=== PATIENT | female | born 1965 | race Caucasian/White ===

== ENCOUNTER 2019-08-07 07:07 | Day surgery (SDC) | payer OTHER, BC, SELFPAY ==
[2019-08-06 09:16] VITALS: BMI 46.7
--- NOTE | 2019-08-07 07:22 | ANES.PREANES ---
Pre-Anesthetic Assessment Pre-Anesthetic Assessment: Height/Weight: Height 1.65 m Weight 127.459 kg Preop Diagnosis: Family hx colon polyps Proposed Procedure: Operation Date: 08/07/19 08:30 Proposed Procedures p Colonoscopy 96016/R19.5(Not Applicable) - Isaiah Peña MD Familial anesthetic complications: No trouble with anesthesia Was Beta Armand taken within 24 hours: N/A Last intake: Yesterday 1130 pm Social: Social History: No alcohol and No tobacco Exam: Pre-Anes Outpt Exam: alert, oriented x 3, clear to auscultation bilaterally and regular rate & rhythm Airway: Cervical ROM: WNL MP: 1 Dentition: Full Pulmonary: Pulmonary: Sleep apnea (CPAP) and URI Comments: Feeling as if she may have cold now - some coughing and phlegm, no fevers CV/HEM: CV/HEM: None reported : : None reported Hepatic: Hepatic: None reported GI: GI: GERD Comments: Hx gastric bypass, Metabolic: Metabolic: Morbid obesity Musc/skel: Musc/skel: None reported Neuropsych: Comments: 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 No follow up Anesthetic Plan: ASA status: II Anesthesia: MAC PFSH Anesthesia PFSH: Social History (Updated 08/06/19 @ 09:12 by Jessica White RN) Smoking and tobacco status: former smoker Data Anesthesia Cardiac Studies: No Data to Display
[2019-08-07 08:03] VITALS: BP 153/69; RESP 20; TEMP 36.9; O2SAT 99
[2019-08-07] MEDS: sodium chloride 0.9% 1,000 ML 30 ML (08:10)
[2019-08-07 09:26] VITALS: BP 98/68; PULSE 77; RESP 16; TEMP 36.8; O2SAT 98
[2019-08-07 09:37] VITALS: BP 106/58; PULSE 77; RESP 16; O2SAT 99
--- NOTE | 2019-08-07 14:48 | ANE.PACU ---
 Inpatient post-anesthesia follow up: Airway intact: Yes Vital signs: Temperature 98.2 F Pulse Rate [Monito r] 77 Respiratory Rate 16 Blood Pressure [Le ft Arm] 106/58 Pulse Oximetry 99 Oxygen Delivery Me thod Room Air Oxygen Flow Rate 2 Fraction of Inspir ed Oxygen Hydration adequate: Yes Nausea and vomiting: No Mental status: Baseline
--- NOTE | 2019-08-16 09:49 | PM.HPUD ---
H&P update H&P Update: DATE OF SURGERY/PROCEDURE: 08/07/19 DATE H&P PERFORMED: 07/02/19 H&P UPDATE INFORMATION: No changes to prior documentation and H&P to be scanned into chart PLANNED PROCEDURE: Operation Date: 08/07/19 08:30 Proposed Procedures p Colonoscopy 31528/R19.5(Not Applicable) - Isaiah Peña MD Conscious Sedation: PHYSICAL EXAM: alert and oriented x 3 OTHER PERTINENT EXAM FINDINGS: abomen: soft Full H&P Perinent History: Medical/Surgical History: Medical History (Updated 08/07/19 @ 09:28 by Isaiah Peña MD) History of colon polyps (Acute) Family History: Family History (Updated 08/07/19 @ 08:46 by Isaiah Peña MD) Other Family history of colon cancer Social History: Social History Smoking and tobacco status: former smoker
== END 2019-08-07 09:55 | disposition home or self-care (01) ==
PROVIDERS: Family Provider Registered Nurse; PCP Registered Nurse; Visit Provider Surgery
PROC: 0DJD8ZZ Inspection of Lower Intestinal Tract, Via Natural or Artificial Opening Endoscopic (ICD-10-PCS; CPT 45378; principal; 2019-08-07 08:30)
DX: R19.5 Other fecal abnormalities (principal); D12.2 Benign neoplasm of ascending colon; K57.30 Diverticulosis of large intestine without perforation or abscess without bleeding; Z87.891 Personal history of nicotine dependence; Z95.1 Presence of aortocoronary bypass graft; G47.30 Sleep apnea, unspecified; E66.01 Morbid (severe) obesity due to excess calories; Z68.42 Body mass index [BMI] 45.0-49.9, adult
CPT/HCPCS: 12345; 45380; 45385; 88305; 96365; J2704; J7030

== ENCOUNTER → 2020-05-08 14:08 | Outpatient (BNVA) | payer BC, SELFPAY | PROVIDERS: Family Provider Registered Nurse; PCP Registered Nurse; Visit Provider Registered Nurse | DX: E53.9 Vitamin B deficiency, unspecified (principal); N93.9 Abnormal uterine and vaginal bleeding, unspecified | CPT/HCPCS: 81000 ==

== ENCOUNTER 2020-05-13 11:22 | Outpatient (CLI) | payer BC, SELFPAY ==
--- NOTE | 2020-05-13 11:28 | MM_ITS ---
WS: [id number] BILATERAL DIGITAL SCREENING MAMMOGRAPHY WITH CAD CLINICAL INFORMATION: SCREENING HISTORY: Screening mammogram. No current complaints. COMPARISON: April 24, 2019 TECHNIQUE: Bilateral CC and MLO views. FINDINGS: Scattered fibroglandular densities bilaterally. No suspicious focal mass, asymmetry, calcifications, or architectural distortion. No evidence of malignancy. MM/[place] [id number] IMPRESSION: BI-RADS: 1-Negative FOLLOW UP: 1 Year Follow-up Recommend return to annual screening mammography.
== END 2020-05-13 11:23 | disposition home or self-care (01) ==
LOC: RADSHAW 11:25
PROVIDERS: PCP Registered Nurse; Visit Provider Registered Nurse
DX: Z12.31 Encounter for screening mammogram for malignant neoplasm of breast (principal)
CPT/HCPCS: 77067

== ENCOUNTER → 2020-06-30 11:06 | Outpatient (BNVA) | payer BC, SELFPAY | PROVIDERS: PCP Registered Nurse; Visit Provider Obstetrics & Gynecology | DX: Z12.4 Encounter for screening for malignant neoplasm of cervix (principal); N95.0 Postmenopausal bleeding; E66.01 Morbid (severe) obesity due to excess calories | CPT/HCPCS: 83001; 83036; 84146; 84443; 84702; 85025; 88175 ==

== ENCOUNTER → 2020-07-03 10:59 | Outpatient (BNVA) | payer BC, SELFPAY | PROVIDERS: PCP Registered Nurse; Visit Provider Obstetrics & Gynecology | DX: N95.0 Postmenopausal bleeding (principal) | CPT/HCPCS: 76830 ==

== ENCOUNTER → 2020-08-21 13:51 | Outpatient (BNVA) | payer OTHER, SELFPAY | PROVIDERS: PCP Registered Nurse; Visit Provider Obstetrics & Gynecology | DX: Z11.59 Encounter for screening for other viral diseases (principal) | CPT/HCPCS: 87635 ==

== ENCOUNTER 2020-08-27 10:29 | Day surgery (SDC) | payer OTHER, SELFPAY ==
[2020-08-25 12:35] VITALS: BMI 55.7
[2020-08-25 13:14] LABS: Basophils % 0.1 %; Eosinophils # 0.1 10^3/uL (0.0-0.8); Eosinophils % 1.3 %; Hematocrit 46.2 % (37.0-47.0); Hemoglobin 14.6 g/dL (11.5-15.3); Lymphocytes # 1.5 10^3/uL (0.8-4.8); Lymphocytes % 21.5 %; Mean Corpuscular HGB Conc 31.6 g/dL (30.0-36.0); Mean Corpuscular Hemoglobin 29.2 pg (28.0-34.0); Mean Corpuscular Volume 92.4 fL (81-99); Mean Platelet Volume 10.1 fL (7.4-10.4); Monocytes # 0.6 10^3/uL (0.2-0.9); Monocytes % 8.7 %; Neutrophils # 4.67 10^3/uL (1.8-7.7); Neutrophils % 68.1 %; Nucleated Red Blood Cells % 0 %; Platelet Count 265 10^3/cmm (130-400); Red Cell Distribution Width 14.5 % (12.1-15.1); White Blood Count 6.9 10^3/uL (4.0-10.0)
--- NOTE | 2020-08-25 13:14 | ANES.PREANE2 ---
Pre-Anesthetic Assessment Pre-Anesthetic Assessment: Height/Weight: Height 1.57 m Weight 138.346 kg Preop Diagnosis: Postmenopausal bleeding Proposed Procedure: Operation Date: 08/27/20 11:35 Proposed Procedures p Hysteroscopy 29924 85365 11458 N95.0(Not Applicable) - Indra Seaman MD s Dilation And Curettage (D&C) with myosure and paracervical block(Not Applicable) - Indra Seaman MD Familial anesthetic complications: None Social: Social History: No alcohol and No tobacco Exam: Pre-Anes Outpt Exam: alert, oriented x 3, clear to auscultation bilaterally and regular rate & rhythm Airway: MP: 1 Dentition: Other (missing teeth) Pulmonary: Pulmonary: Sleep apnea (cpap) GI: GI: GERD Comments: s/p gastric bypass Metabolic: Metabolic: Morbid obesity Neuropsych: Comments: 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 Still f.u once a year at [facility]. S/P partial hysterectomy 1986 Status post colonoscopy with polypectomy 08/07/2019:Ascending colon: 5 mm sessile polyp removed with cold biopsy forceps Sigmoid colon: Mild diverticulosis, 1.5 cm pedunculated polyp removed with a hot snare Family History Mother Diabetes Stroke Father Family history of colon cancer Denies family history of Ovarian cancer Clotting disorder Hyperlipidemia Breast cancer Anesthesia complication Bleeding disorder Hypertension Uterine cancer Thyroid condition Social History (Updated 08/25/20 @ 11:13 by Ashley Rangel RN) Smoking and tobacco status: former smoker Quit status (tobacco): has quit using tobacco Year quit tobacco: 2011 Alcohol intake: never Substance/Drug Use: never Data Anesthesia CBC & Chem 7: 08/25/20 13:05 08/25/20 13:05 Cardiac Studies: No Data to Display
[2020-08-25 13:40] LABS: Alanine Aminotransferase 27 U/L (0-33); Albumin Level 4.5 g/dL (3.5-5.2); Alkaline Phosphatase 129 IU/L (35-105); Anion Gap 10.1 (5-19); Aspartate Amino Transferase 22 U/L (0-32); Blood Urea Nitrogen 12 mg/dL (6-20); Calcium 9.3 mg/dL (8.5-10.5); Carbon Dioxide 31 mmol/L (22-29); Chloride 102 mmol/L (98-107); Globulin 3.1 g/dL (1.3-4.6); Glomerular Filtration Rate 127.6 mL/min (90-130); Glucose 114 mg/dL (65-115); Osmolality Calculated 289 mOsm/kg (285-295); Potassium 4.1 mmol/L (3.5-5.1); Sodium 139 mmol/L (136-145); Total Bilirubin 0.3 mg/dL (0.15-1.2); Total Protein 7.6 g/dL (6.6-8.7); Urine Appearance Clear (CLEAR); Urine Color Yellow (Yellow)
[2020-08-25 13:41] LABS: Add Urine Microscopic? YES; Bilirubin Urine Neg (Negative); Blood Urine 2+ (Negative); Glucose Urine UA Norm (Normal); Ketones Urine Negative (Negative); Leukocyte Esterase Urine Negative (Negative); Nitrate Urine Negative (Negative); Protein Urine Neg (Negative); Urobilinogen Urine Norm (Negative); pH Urine 5 (5-7)
[2020-08-25 13:43] LABS: Add Urine Culture? No; Bacteria Urine TRACE /hpf; Mucus Urine 3+ /hpf; RBC Urine 0-4 /hpf (0-2)
[2020-08-27 11:13] VITALS: BP 126/100; RESP 18; TEMP 37.2
[2020-08-27] MEDS: sodium chloride 0.9% 500 ML IV (11:28)
[2020-08-27] MEDS: scopolamine 1.5 Patch 1 PATCH TRANSDERMA (11:28)
--- NOTE | 2020-08-27 11:37 | ANES.PAUD2 ---
Pre-Anesthetic Update Pre-Anesthetic Assessment: Date of Surgery/Procedure: 08/27/20 Preop Diagnosis: Postmenopausal bleeding Proposed Procedure: Operation Date: 08/27/20 11:55 Proposed Procedures p Hysteroscopy 74709 [id number] 23008 N95.0(Not Applicable) - Indra Seaman MD s Dilation And Curettage (D&C) with myosure and paracervical block(Not Applicable) - Indra Seaman MD Any changes to Pre-Anesthetic Assessment?: No Last Intake: Intake Last Liquid Date 08/26/20 Last Liquid Time 21:00 Last Solid Date 08/26/20 Last Solid Time 17:30 Labs Last 48hrs: Laboratory Results - last 48 hr 08/25/20 08/25/20 08/25/20 13:05 13:05 13:05 WBC 6.9 RBC 5.00 Hgb 14.6 Hct 46.2 MCV 92.4 MCH 29.2 MCHC 31.6 RDW 14.5 Plt Count 265 MPV 10.1 Neut % (Auto) 68.1 Lymph % (Auto) 21.5 [place] % (Auto) 8.7 Eos % (Auto) 1.3 Baso % (Auto) 0.1 Neut # (Auto) 4.67 Lymph # (Auto) 1.5 [place] # (Auto) 0.6 Eos # (Auto) 0.1 Baso # (Auto) 0.0 Nucleated RBC % (a uto) 0 Nucleated RBCs # 0.0 Sodium 139 Potassium 4.1 Chloride 102 Carbon Dioxide 31 H Anion Gap 10.1 BUN 12 Creatinine 0.5 GFR Calculation 127.6 Glucose 114 Calculated Osmolal ity 289 Calcium 9.3 Total Bilirubin 0.3 AST 22 ALT 27 Alkaline Phosphata se 129 H Total Protein 7.6 Albumin 4.5 Globulin 3.1 Urine Color Yellow Urine Appearance Clear Urine pH 5 Ur Specific Gravit y 1.010 Urine Protein Neg Urine Glucose (UA) Norm Urine Ketones Negative Urine Blood 2+ H Urine Nitrate Negative Urine Bilirubin Neg Urine Urobilinogen Norm Ur Leukocyte Ann ase Negative Urine RBC 0-4 H Urine WBC None Ur Squamous Epith Cells 5-10 H Amorphous Sediment Not Reportable Urine Bacteria Trace Urine Mucus 3+ Blood Type Rho(D) Type Antibody Screen 08/25/20 13:05 WBC RBC Hgb Hct MCV MCH MCHC RDW Plt Count MPV Neut % (Auto) Lymph % (Auto) [place] % (Auto) Eos % (Auto) Baso % (Auto) Neut # (Auto) Lymph # (Auto) [place] # (Auto) Eos # (Auto) Baso # (Auto) Nucleated RBC % (a uto) Nucleated RBCs # Sodium Potassium Chloride Carbon Dioxide Anion Gap BUN Creatinine GFR Calculation Glucose Calculated Osmolal ity Calcium Total Bilirubin AST ALT Alkaline Phosphata se Total Protein Albumin Globulin Urine Color Urine Appearance Urine pH Ur Specific Gravit y Urine Protein Urine Glucose (UA) Urine Ketones Urine Blood Urine Nitrate Urine Bilirubin Urine Urobilinogen Ur Leukocyte Ann ase Urine RBC Urine WBC Ur Squamous Epith Cells Amorphous Sediment Urine Bacteria Urine Mucus Blood Type O Positive Rho(D) Type Positive Antibody Screen Negative Vitals: Temperature 99.0 F 08/27/20 11:13 Pulse Rhythm 08/27/20 11:07 Pulse Strength 3+ Normal 08/27/20 11:07 Respiratory Rate 18 08/27/20 11:13 Blood Pressure 126/100 08/27/20 11:13 Blood Pressure Ina n 108 08/27/20 11:13 Oxygen Delivery Me thod 08/27/20 11:07 Exam: Pre-Anes Outpt Exam: alert, oriented x 3, clear to auscultation bilaterally and regular rate & rhythm Cardiac Studies: No Data to Display
--- NOTE | 2020-08-27 14:42 | W.PM.OPSUD ---
Surgery/Procedure H&P Update DATE OF PROCEDURE: August 27, 2020 DATE H&P PERFORMED: 08/07/20 H&P UPDATE INFORMATION: I have reviewed H&P completed within last 30 days, I have examined patient prior to procedure and No changes to prior documentation PREOP DIAGNOSIS: Postmenopausal bleeding PLANNED PROCEDURE: Operation Date: 08/27/20 11:55 Proposed Procedures p Hysteroscopy 36217 17700 21961 N95.0(Not Applicable) - Indra Seaman MD s Dilation And Curettage (D&C) with myosure and paracervical block(Not Applicable) - Indra Seaman MD
--- NOTE | 2020-08-27 15:29 | PM.OP ---
Operative Report Date of procedure: August 27, 2020 Pre-op Diagnosis: Postmenopausal bleeding Post-op diagnosis: same Post-op Findings: Endometrial polyp Procedure Done: Hysteroscopic polypectomy via MyoSure Specimens removed/disposition: Endometrial polyp and endometrial curettings Surgeon: Indra Seaman MD Anesthesia: MAC Estimated blood loss (mL): 10 IV fluids (mL): 1,000 Urine output (mL): 50 Complications: None Condition: stable Disposition: PACU Brief History: 54-year-old female with postmenopausal bleeding Procedure: After informed consent, the risks included but were not limited to bleeding, infection, injury to internal organs. The patient was counseled on a possible laparotomy and on the potential need for hysterectomy. The patient expressed understanding of the risks involved, all questions were answered, and the patient consented to the procedure. The patient was taken to the operating room where general anesthesia was administered. She was placed in the dorsal lithotomy position and prepped and draped in sterile fashion. A time out procedure was performed. The patient was examined under anesthesia and found to have a normal uterus with normal adnexa. A sterile weight speculum was placed in the vagina. The uterus was then gently sounded to 6 cm, and the cervix was dilated. The 0 degrees MyoSure hysteroscope was advanced gently to the uterine fundus while visualizing the monitor. Survey of the uterine cavity showed: Polyp from anterior wall, the fundus shows atrophic endometrium; left ostium was visualized, and lateral wall with atrophic endometrium; right ostium visualized, and lateral wall with atrophic endometrium; anterior and posterior bravo are with atrophic endometrium; endocervical canal is normal. The MyoSure device was advanced and the direct visualization the polyps was morcellated without complication. At the end of morcellation the fluid deficit was 900 mL and was estimated at approximately 500 mL were on the floor. There was minimal bleeding noted and the tenaculum removed with goad hemostasis noted. The patient tolerated the procedure well. The patient was taken to the recovery area in stable condition.
[2020-08-27 15:36] VITALS: BP 132/112; PULSE 90; RESP 18; TEMP 36.2; O2SAT 96
[2020-08-27 16:10] VITALS: BP 109/71; PULSE 86; RESP 18; O2SAT 98
[2020-09-04 09:20] LABS: Miscellaneous Test See Scanned Lab Rpt
== END 2020-08-27 16:20 | disposition home or self-care (01) ==
PROVIDERS: PCP Registered Nurse; Visit Provider Obstetrics & Gynecology
PROC: 0UDB8ZZ Extraction of Endometrium, Via Natural or Artificial Opening Endoscopic (ICD-10-PCS; CPT 58558; principal; 2020-08-27 11:55)
DX: N95.0 Postmenopausal bleeding (principal); K21.9 Gastro-esophageal reflux disease without esophagitis; E66.01 Morbid (severe) obesity due to excess calories; Z68.43 Body mass index [BMI] 50.0-59.9, adult; Z95.1 Presence of aortocoronary bypass graft; Z86.010 Personal history of colon polyps; G47.33 Obstructive sleep apnea (adult) (pediatric); Z87.891 Personal history of nicotine dependence
CPT/HCPCS: 58558; 12345; 36415; 51702; 80053; 81001; 81301; 85025; 86850; 86900; 88305; 96365; J0690; J2250; J2704; J3010; J7040

== ENCOUNTER → 2020-10-17 13:07 | Outpatient (BNVA) | payer OTHER, SELFPAY | PROVIDERS: PCP Registered Nurse; Visit Provider Obstetrics & Gynecology | DX: N85.02 Endometrial intraepithelial neoplasia [EIN] (principal); N95.0 Postmenopausal bleeding | CPT/HCPCS: 87635 ==

== ENCOUNTER 2020-10-22 10:14 | Observation (INO) | payer OTHER, SELFPAY ==
[2020-10-17 11:08] VITALS: BMI 55.7
--- NOTE | 2020-10-17 11:55 | P.ANESASSM_ITS ---
Pre-Anesthetic Assessment Pre-Anesthetic Assessment: Height/Weight: Height 1.57 m Weight 138.346 kg Preop Diagnosis: Postmenopausal bleeding Proposed Procedure: Operation Date: 10/22/20 09:35 Proposed Procedures p Total Vaginal Hysterectomy 42415 N95.0 N85.02(Not Applicable) - Indra Seaman MD s Salpingo-Oophorectomy (Vaginal)(Bilateral) - Indra Seaman MD Familial anesthetic complications: None Social: Social History: No alcohol and No tobacco Exam: Pre-Anes Outpt Exam: alert, oriented x 3, clear to auscultation bilaterally and regular rate & rhythm Airway: Cervical ROM: WNL MP: 3 Dentition: Other (missing) Pulmonary: Pulmonary: Sleep apnea (cpap) GI: GI: GERD Comments: gastric bypass surgery in 2014 Metabolic: Metabolic: Morbid obesity Neuropsych: Comments: dhara walkerysm in her 20s which burst Anesthetic Plan: ASA status: 3 Anesthesia: General Risk of > 500 ml blood loss (7ml/kg in children): No PFSH Anesthesia PFSH: Medical History Aftercare following surgery of the genitourinary system GERD (gastroesophageal reflux disease) History of colon polyps Follow-up colonoscopy 2024 Obstructive sleep apnea Otalgia, bilateral Vitamin B deficiency Surgical History (Updated 10/17/20 @ 09:31 by Ashley Rangel, LEANNA) H/O esophagogastroduodenoscopy H/O eye surgery AT AGE 2 For lazy ey History of appendectomy History of delivery Hx of gastric bypass 2013. Still f.u once a year at [facility]. S/P partial hysterectomy 1986 Status post colonoscopy with polypectomy 08/07/2019:Ascending colon: 5 mm sessile polyp removed with cold biopsy forceps Sigmoid colon: Mild diverticulosis, 1.5 cm pedunculated polyp removed with a hot snare Family History Mother Diabetes Stroke Father Family history of colon cancer Denies family history of Ovarian cancer Clotting disorder Hyperlipidemia Breast cancer Anesthesia complication Bleeding disorder Hypertension Uterine cancer Thyroid condition Social History (Updated 10/17/20 @ 09:31 by Ashley Rangel RN) Smoking and tobacco status: former smoker Quit status (tobacco): has quit using tobacco Year quit tobacco: 2012 Alcohol intake: never Substance/Drug Use: never Female Reproductive History: Date of last menstrual period: 07/25/13 Data Anesthesia Cardiac Studies: No Data to Display
[2020-10-22] VITALS (18 sets, daily range): BP systolic 85–162; BP diastolic 53–79; PULSE 71–97; RESP 12–19; TEMP 36.4–37.3; O2SAT 91–96
[2020-10-22 06:20] LABS: Add Urine Microscopic? NO
[2020-10-22 06:33] LABS: Basophils % 0.4 %; Eosinophils # 0.1 10^3/uL (0.0-0.8); Eosinophils % 0.7 %; Hematocrit 50.4 % (37.0-47.0); Hemoglobin 16.1 g/dL (11.5-15.3); Lymphocytes # 1.6 10^3/uL (0.8-4.8); Lymphocytes % 23.7 %; Mean Corpuscular HGB Conc 31.9 g/dL (30.0-36.0); Mean Corpuscular Hemoglobin 29.5 pg (28.0-34.0); Mean Corpuscular Volume 92.5 fL (81-99); Mean Platelet Volume 9.6 fL (7.4-10.4); Monocytes # 0.7 10^3/uL (0.2-0.9); Monocytes % 10.6 %; Neutrophils # 4.29 10^3/uL (1.8-7.7); Neutrophils % 64.3 %; Nucleated Red Blood Cells % 0 %; Platelet Count 291 10^3/cmm (130-400); Red Blood Count 5.45 10^6/uL (4.1-5.3); White Blood Count 6.7 10^3/uL (4.0-10.0)
[2020-10-22] MEDS: sodium chloride 0.9% 500 ML IV ×2 (06:40→22:26)
[2020-10-22 06:48] LABS: Glucose Urine UA 4+ (Normal); Protein Urine Neg (Negative); Specific Gravity, Urine 1.005 (1.005-1.030); Urine Appearance Clear (CLEAR); Urine Color Yellow (Yellow); pH Urine 7 (5-7)
[2020-10-22 06:49] LABS: Bilirubin Urine Neg (Negative); Blood Urine Neg (Negative); Ketones Urine Negative (Negative); Leukocyte Esterase Urine Negative (Negative); Nitrate Urine Negative (Negative); Urobilinogen Urine Norm (Negative)
[2020-10-22] MEDS: enoxaparin 40 mg/0.4 mL Syringe SUBCUT (06:49)
[2020-10-22] MEDS: scopolamine 1.5 Patch 1 PATCH TRANSDERMA (06:49)
--- NOTE | 2020-10-22 06:56 | W.PM.OPSUD ---
Surgery/Procedure H&P Update DATE OF PROCEDURE: October 22, 2020 DATE H&P PERFORMED: 10/17/20 H&P UPDATE INFORMATION: I have reviewed H&P completed within last 30 days, I have examined patient prior to procedure and No changes to prior documentation PREOP DIAGNOSIS: Menopausal bleeding, complex atypical hyperplasia; endometrial hyperplasia PLANNED PROCEDURE: Operation Date: 10/22/20 07:00 Proposed Procedures p Total Vaginal Hysterectomy 50463 N95.0 N85.02(Not Applicable) - Indra Seaman MD s Salpingo-Oophorectomy (Vaginal)(Bilateral) - Indra Seaman MD
[2020-10-22] MEDS: ceFAZolin 3,000 MG in sodium chloride 0.9% (100 ml) 100 ML 200 MG IV (07:00)
[2020-10-22 07:18] LABS: Alanine Aminotransferase 32 U/L (0-33); Albumin Level 4.2 g/dL (3.5-5.2); Alkaline Phosphatase 91 IU/L (35-105); Anion Gap 11.7 (5-19); Aspartate Amino Transferase 24 U/L (0-32); Blood Urea Nitrogen 8 mg/dL (6-20); Calcium 9.1 mg/dL (8.5-10.5); Carbon Dioxide 31 mmol/L (22-29); Chloride 103 mmol/L (98-107); Globulin 2.8 g/dL (1.3-4.6); Glomerular Filtration Rate 127.2 mL/min (90-130); Glucose 126 mg/dL (65-115); Osmolality Calculated 292 mOsm/kg (285-295); Potassium 4.7 mmol/L (3.5-5.1); Sodium 141 mmol/L (136-145); Total Bilirubin 0.4 mg/dL (0.15-1.2)
--- NOTE | 2020-10-22 07:59 | SUR.OPER ---
pt's sister notified of surgical start
--- NOTE | 2020-10-22 10:19 | PM.OP ---
Operative Report Date of procedure: October 22, 2020 Pre-op Diagnosis: Menopausal bleeding, complex atypical hyperplasia; endometrial hyperplasia Post-op diagnosis: same Post-op Diagnosis: endometrial cancer Procedure Done: Laparoscopic-assisted vaginal hysterectomy. Lysis of adhesions. . Cystoscopy Specimens removed/disposition: Uterus Pathology: Uterus Surgeon: Indra Seaman MD Anesthesia: General Estimated blood loss (mL): 400 IV fluids (mL): 1,400 Urine output (mL): 400 Complications: none Condition: stable Disposition: PACU Brief History: 55-year-old female with postmenopausal bleeding, endometrial biopsy with complex hyperplasia with atypia Procedure: After informed consent, the patient was taken to the operating room where general anesthesia was administered. Pre-Procedure Time-Out verifying the correct patient identity, correct procedure verified with consent, correct site and side, correct patient position, availability of correct implants and any special equipment or requirements was performed and acknowledge by the OR team. She was placed in the dorsal lithotomy position and prepped and draped in sterile fashion. The patient was examined under anesthesia and found to have a normal uterus with normal adnexa. A Verdin catheter was placed in the bladder. A weighted speculum was placed in the vagina, and the anterior lip of cervix was grasped with the single toothed tenaculum. A uterine manipulator was advanced into the endocervical. Tenaculum was removed after uterine manipulator was secured. The speculum was removed from the vagina. The attention was brought to abdomen after changing gloves. The base of the umbilicus was grasped with an Allis clamp and with 2 towel clamp bilaterally tenting up the umbilicus an intraumbilical incision was made with a scalpel. While tenting up on the abdomen, a Verres needle with sleeve was admitted into the intra-abdominal cavity. A saline drop test was performed and noted to be within normal limits. Pneumoperitoneum was attained with 4 liters of carbon dioxide. The Verres needle was removed. Then a 5 mm Optiview trocar and cannula were inserted under direct visualization without complications. Trocars were removed and the laparoscope was inserted and connected to the video camera light source. A 5 mm trocar and cannula were placed in the right lower quadrant under direct visualization after infiltration of 0.5% Marcaine with epinephrine. A 5 mm trocar and cannula were placed in the left lower quadrant under direct visualization after infiltration of 0.5% Marcaine with epinephrine. The pelvic contents were visualized and noted a small uterus, deep cul-de-sac, normal bilateral fallopian tubes and ovaries, normal appendix, and both ureters were identified crossing the pelvic brim and pelvic sidewall. The left round ligament was coagulated and transected using LigaSure device. The left broad ligament was opened down to the level of the uterine artery and vein. The left infundibulopelvic ligament was coagulated using LigaSure and then transected. The right round ligament was coagulated and transected using LigaSure, and the right broad ligament was opened down to the level of the right uterine artery and vein. The right infundibulopelvic ligament was coagulated and transected using LigaSure. Peritoneum of the lower uterine segment was entered using LIGASURE, and the bladder was dissected off the lower uterine segment using blunt dissection. Careful inspection revealed complete hemostasis. A weighted speculum was placed in the posterior vaginal wall and the right-angle retractor used to visualize the cervix. The cervix was grasped across the anterior lip with a single-toothed tenaculum and circumferentially infiltrated with 1% Xylocaine with epinephrine at this time. The cervix was circumferentially excised with the scalpel. The vaginal mucosa was dissected superiorly with sharp dissection. The anterior peritoneal reflection was identified, and it was entered with Metzenbaum scissors. A posterior colpotomy was made through the cul-de-sac space. The posterior peritoneum was identified in similar fashion and Metzenbaum scissors were used to enter the cul-de-sac. At this time, a weighted speculum was placed, advanced posteriorly into the cul-de-sac. At this time, the left and right uterosacral ligaments were isolated and ligated with 0 Vicryl. The LigaSure device was then used in a serial fashion up through the cardinal ligaments bilaterally. Finally, the uterine arteries were cross-clamped, cut, and ligated with the LigaSure device. LigaSure device was then used up through the broad ligaments superiorly and finally the uterus was rotated posteriorly. The left and right tubes were then cross-clamped and ligated with LigaSure device. The uterus was excised and submitted for pathologic evaluation. At this time, [place] clamps were used to grasp the left and right ovaries, and they were removed per the patient's request. Curved Zeppelin clamps were placed across the infundibulopelvic ligaments bilaterally and curved scissors were used to excise the specimen from the Zeppelin clamp. The pedicles were doubly ligated bilaterally with 0 Vicryl and hemostasis noted to be achieved. No other abnormalities were noted in the pelvic cavity. At this time, instruments were removed from the patient's abdominopelvic cavity. Vaginal cuff closure and peritoneum were incorporated into one layer with 0 Vicryl suture in a continuous running interlocking fashion. Hemostasis was noted to be achieved. Verdin catheter was then placed yielding clear leila urine. A vaginal packing with Premarin cream was placed to provide support during the healing process. The patient tolerated the procedure well and was taken to the recovery room in a stable condition. Sponge and needle counts were correct x3.
--- NOTE | 2020-10-22 10:32 | P.PCN_ITS ---
PACU note PACU note: VSS, Good respiratory effort, report to RECRUITMENT OFFICER Post-Anesthesia Exam: awake
--- NOTE | 2020-10-22 10:32 | PM.PACU ---
PACU note PACU note: VSS, Good respiratory effort, report to ELECTROMECHANIC Post-Anesthesia Exam: awake
--- NOTE | 2020-10-22 10:47 | SUR.PHASEI ---
PT AWAKE ALERT TAKING OCC ICE CHIPS PT VERBALLY DENIES NAUSEA AND PAIN, PT GIVEN 2 WARM BLANKETS FOR COMFORT AND SHIVERING. ABD LARGE WITH 3 SITES WITH EXOFIN, DARLENE PAD AND KATZ CATHETER TO DD WITH LARGE AMT OF BLUE URINE TO TUBING AND BAG.
--- NOTE | 2020-10-22 11:23 | SUR.PHASEI ---
PT TO OB AWAKE ALERT TALKNG AND LAUGHING WITH STAFF, PT MOVED TOBED WITH THE RUSLAN IRIZARRY WITH 3 SITES D/I KATZ PATENT OF BLUE URINE
[2020-10-22] MEDS: ketorolac 30 mg/mL INJ IVP ×2 (12:27→18:39)
[2020-10-22] MEDS: dextrose 5%-lactated ringers 1,000 ML 125 ML IV ×2 (14:26→21:45)
[2020-10-22] MEDS: HYDROcodone-acetaminophen 5-325 mg Tablet PO (16:24)
--- NOTE | 2020-10-22 18:04 | ANE.PACU2 ---
Inpatient post-anesthesia follow up: Airway intact: Yes Vital signs: Temperature 97.9 F Pulse Rate 94 Respiratory Rate 18 Blood Pressure 105/64 Pulse Oximetry 94 Oxygen Delivery Me thod Room Air Oxygen Flow Rate Fraction of Inspir ed Oxygen Hydration adequate: Yes Nausea and vomiting: No Pain level: 3 Mental status: Baseline
--- NOTE | 2020-10-22 18:10 | PC.NURSE ---
Engine Hostler attempted to walk patient. Patient stood, reported that she was feeling fine. Patient took a couple of steps around the bed and then stated that she was feeling dizzy. Patient assisted back to bed. Patient felt better after laying down. Patient reports she will press her call light when she desired to attempt to ambulate again.
[2020-10-22] MEDS: docusate sodium 100 mg Capsule PO (18:39)
[2020-10-22] MEDS: diphenhydrAMINE 25 mg Capsule PO (18:39)
[2020-10-23 04:00] VITALS: BP 110/62; PULSE 80; RESP 17; TEMP 36.7; O2SAT 95
[2020-10-23 05:17] LABS: Hemoglobin 11.7 g/dL (11.5-15.3); Mean Corpuscular HGB Conc 31.6 g/dL (30.0-36.0); Mean Corpuscular Hemoglobin 29.4 pg (28.0-34.0); Mean Platelet Volume 9.3 fL (7.4-10.4); Platelet Count 242 10^3/cmm (130-400); Red Blood Count 3.98 10^6/uL (4.1-5.3); Red Cell Distribution Width 14.9 % (12.1-15.1); White Blood Count 8.9 10^3/uL (4.0-10.0)
[2020-10-23] MEDS: HYDROcodone-acetaminophen 5-325 mg Tablet PO ×2 (05:19→11:54)
[2020-10-23] MEDS: ketorolac 30 mg/mL INJ IVP (05:19)
[2020-10-23] MEDS: docusate sodium 100 mg Capsule PO (09:44)
[2020-10-23] MEDS: diphenhydrAMINE 25 mg Capsule PO (09:44)
[2020-10-23] MEDS: multivitamin therapeutic Tablet 1 TAB PO (09:44)
[2020-10-23] MEDS: pantoprazole DR 40 mg Tablet PO (09:44)
[2020-10-23 09:51] VITALS: BP 96/64; PULSE 78; RESP 16; TEMP 36.6; O2SAT 97
--- NOTE | 2020-10-23 12:36 | P.DS_ITS ---
Discharge Providers MANAGER MANAGING Date of Admission: 10/22/20 10:14 Date of Discharge: 10/23/20 Attending Provider at Admission: Indra Seaman MD Attending Provider at Discharge: Indra Seaman MD Primary Care Provider: VALENTE Sotelo Reason for Visit Reason for Visit: postmenopausal bleeding Hospital Course Hospital Course Mrs. Dover 55-year-old female with postmenopausal bleeding admitted for planned laparoscopic-assisted vaginal hysterectomy. The procedure was performed without complication. She is afebrile and hemodynamically stable. Tolerating diet well. Ambulating without difficulty. Passing flatus. Overnight postop observation has been uneventful. Patient was counseled regarding preliminary frozen section of the uterus showing stage I endometrial adenocarcinoma. Physical Exam Narrative: EXAM NARRATIVE: GA: Alert and oriented ?3. HEENT: WNL. Heart: Regular rate and rhythm. Lungs: Clear to auscultation bilaterally. Abdomen: Bowel sounds present, nontender, minimal tenderness, incision clean and dry, no redness, pain or edema. SECURITY GUARDS DISPATCHER: No bleeding. Extremities: No edema, no cyanosis, no calves pain. Urinary Catheter Management^: Verdin: Cath Placed During This Visit: yes, but has since been removed by the nurse Reason for Continuing Indwelling Catheter: Decision to DC Catheter Urinary Catheter Date of Insertion: 10/22/20 Urinary Catheter Time of Insertion: 07:41 Date Urinary Catheter Removed: 10/23/20 Time Urinary Catheter Discontinued: 07:45 Discharge Data Data Completed and Pending: Pending at discharge Category Date Time Status ES surgery / GI i mages Routine Exams 10/22/20 06:40 Taken Pathology: Surgic al [PTH] Routine Pth 10/22/20 10:16 Received Labs from last 24 hours 10/23/20 05:10 WBC 8.9 RBC 3.98 L Hgb 11.7 Hct 37.0 MCV 93.0 MCH 29.4 MCHC 31.6 RDW 14.9 Plt Count 242 MPV 9.3 Vitals: Last Vital Signs Temp 97.9 F 10/23/20 09:51 Pulse 78 10/23/20 09:51 Resp 16 10/23/20 09:51 BP 96/64 10/23/20 09:51 Pulse Ox 97 10/23/20 09:51 Discharge Plan Discharge Patient Disposition: Home Condition: Stable Prescriptions: New hydrocodone-acetaminophen 5-325 mg tablet 1 tab PO Q4H PRN (Reason: pain) Qty: 20 RF: 0 acetaminophen 325 mg capsule 325 mg PO Q4H PRN (Reason: fever or pain) Qty: 60 RF: 0 ferrous sulfate [Iron (ferrous sulfate)] 325 mg (65 mg iron) tablet 325 mg PO BID Qty: 30 RF: 0 ibuprofen 800 mg tablet 800 mg PO TID PRN (Reason: pain) Qty: 60 RF: 0 Continued cyanocobalamin (vitamin B-12) 1,000 mcg/mL solution 1,000 mcg IM .monthly Qty: 1 RF: 5 zinc acetate 25 mg (zinc) capsule 25 mg PO DAILY RF: 0 oxycodone-acetaminophen 5-325 mg tablet 1 tab PO Q8H PRN (Reason: Pain) RF: 0 multivitamin Tablet 1 tab PO DAILY RF: 0 ascorbic acid (vitamin C) [Vitamin C] 1,000 mg Tablet 1,000 mg PO DAILY RF: 0 Calcium 600 + D(3) 600-125 mg-unit Tablet 2 tab PO DAILY RF: 0 docusate sodium [Colace] 100 mg Capsule 200 mg PO DAILY RF: 0 diphenhydramine HCl 25 mg tablet 25 mg PO BID RF: 0 garlic 100 mg tablet 200 mg PO DAILY RF: 0 glucosamine sulfate [Glucosamine] 500 mg tablet 1,000 mg PO DAILY RF: 0 Prilosec OTC 20 mg tablet,delayed release (DR/EC) 40 mg PO DAILY RF: 0 Tylenol 325 mg capsule 325 mg PO Q4H PRN (Reason: fever or pain) RF: 0 Memory Formula Tablet 1 tab PO DAILY RF: 0 Bariatric Multivitamins 45 mg iron- 800 mcg-120 mcg Capsule 1 cap PO DAILY RF: 0 Discharge Orders: Discharge Order (Routine); Ordered 10/23/20 Ordered By: Indra Seaman Referrals: Indra Seaman MD [Physician] - 2 weeks Discharge Diet: Usual diet Discharge Activity: Increase activity as tolerated Patient Instructions: Laparoscopically Assisted Vaginal Hysterectomy (DC) Activity Restrictions/Additional Instructions: 1. Please call [facility] on next working day to make your post-operative appointment in 2 weeks. 2. Please stay home until you come back to the clinic on first post-operative check up. 3. Please follow instructions on your medications CAREFULLY. 4. If you have abdominal incision, do not cover it unless dressing is necessary because of drainage. OK to shower, but avoid bath. Leave steri-strips until they fall off. If they are still on one week after surgery, you may remove them. 5. If you had vaginal surgery or vaginal repair, Dr. Seaman may instruct you to take SITZ bath. 6. Yellow, blood tinged odorous vaginal discharge is usually normal after hysterectomy or vaginal surgeries. 7. No sexual intercourse, tampons, or douches until you are completely released from the post-operative care. 8. Avoid constipation by eating right and maybe using some Metamucil or Milk of Magnesia. 9. All prescription refills are given during the working hours. Please do no wait till it runs out. Call the clinic at [phone] before your medication runs out. The clinic will get in touch with your doctor to prescribe medications if necessary. 10. Please remain within 40 mile radius from our hospital because emergencies do happen now and then during the post-operative period. 11. If you have stairs at home, take one step at a time slowly and minimize the number of trips. It helps to stay in one floor for the next few days. No lifting except what you can lift by one hand until you are released from the post-operative care. 12. Driving is discouraged until you are well healed. It may be 3-4 weeks before you feel strong enough to drive. You should be able to turn and look through the rear window without pain and you should be able to push the brake pedal very hard without pain before you drive. No fast rules, but SAFETY should be your primary concern. DO NOT drive if you are on sedating medications such as narcotics. 13. Call the clinic (during working hours) to make urgent appointment or go to the Emergency room, if any of the following occurs: i. Vaginal bleeding becomes heavy, more than a period. ii. Incision becomes red and sore, or drains pus. iii. Your temperature is over 100.4 or you have chill. iv. IV site becomes red and swollen (a little ``knot?? is usually OK) v. Persistent nausea and vomiting vi. Persistent constipation or diarrhea vii. Rash or allergic reaction to medications. Discharge Attestations MANAGER MANAGING Time Spent in Discharge Care*: greater than 30 min Coding Level of Care Code Acute Regional Loss Prevention Manager for Ch[facility] Xiomara
[2020-10-23 13:30] VITALS: BP 112/64; PULSE 78; RESP 16; TEMP 36.8; O2SAT 97
[2020-10-29 10:04] LABS: Miscellaneous Test See Scanned Lab Rpt
== END 2020-10-23 13:30 | disposition home or self-care (01) ==
LOC: OBGYN 10:15
PROVIDERS: Admitting Provider Obstetrics & Gynecology; PCP Registered Nurse; Visit Provider Obstetrics & Gynecology
PROC: (CPT 58720; 2020-10-22 07:00)
PROC: 0UT9FZZ Resection of Uterus, Via Natural or Artificial Opening With Percutaneous Endoscopic Assistance (ICD-10-PCS; CPT 58550; 2020-10-22 07:00)
DX: C54.1 Malignant neoplasm of endometrium (principal); N92.4 Excessive bleeding in the premenopausal period; K21.9 Gastro-esophageal reflux disease without esophagitis; Z86.010 Personal history of colon polyps; G47.33 Obstructive sleep apnea (adult) (pediatric); Z98.84 Bariatric surgery status; E66.01 Morbid (severe) obesity due to excess calories; Z68.43 Body mass index [BMI] 50.0-59.9, adult
CPT/HCPCS: 58550; 36415; 80053; 81003; 85025; 85027; 86850; 86900; 88309; 88360; 96365; 96372; G0378; J0330; J0690; J1100; J1650; J1885; J2405; J2704; J2710; J3010; J3490; J7040

== ENCOUNTER 2020-12-08 12:40 | Outpatient (CLI) | payer OTHER, SELFPAY ==
--- NOTE | 2020-12-09 18:07 | ONC CON_ITS ---
Dr. Boyd New Patient Note Patient: Juana Salcido Unit #: [id number]: 1965 Dicatated By: Arjun Boyd M.D.Date of Visit: December 08, 2020 Onc MED New Patient/Consult Referring Physician: Dr. Indra Seaman M.D. History of Present Illness: Ms. Juana Salcido, is a 55-year-old female with history of off and on vaginal spotting, was evaluated by ENVIRONMENTAL PROTECTION FORESTER, underwent transvaginal sonogram on July 03, 2020, which showed abnormal thickened heterogeneous endometrium with increased vascularity measuring 28 mm, findings suspicious for neoplasia/hyperplasia , subsequently underwent laparoscopic-assisted vaginal hysterectomy on October 22, 2020 final pathology report showed endometrioid adenocarcinoma, FIGO grade 1, involving endometrial polyp. Less than 50% of myometrial invasion identified. Patient tolerated procedure well, was referred to oncology clinic for further evaluation Past medical history significant for history of colon polyps per colonoscopy done on August 07, 2019 and follow-up colonoscopy scheduled for 2024, obstructive sleep apnea, vitamin B deficiency, history of gastric bypass surgery in 2013 for weight reduction. Father with history of colon cancer Patient denies any specific complaint today, no fever chills, no nausea or vomiting, no diarrhea constipation, no melena or hematochezia, no abdominal pain, no vaginal bleeding. Past Medical History: Ms. Salcido's medical history consists of gastroesophageal reflux disease, obstructive sleep apnea, and vitamin B deficiency. Past Surgical History: Ms. Salcido's surgical/procedural history consists of appendectomy, caesarean section, colonoscopy, hysterectomy, gastric bypass in 2013, and eye surgery in 1967. Medications: Ascorbic Acid 1 Tablet (of 1000 mg) Oral b.i.d., Bariatric Multivitamins/Iron 1 Capsule Oral daily, Calcium + D3 1 Tablet (of 600-800 mg - Units) Oral b.i.d., Cetirizine HCl 1 Tablet (of 10 mg) Tablet, chewable Oral b.i.d., Cyanocobalamin (1000 mcg/mL) Injection Take as Directed, Daily Value Multivitamin 1 Tablet Oral daily, Docusate Sodium 1 Tablet (of 100 mg) Oral b.i.d., Garlic 1 Caplet (of 1000 mg) Capsule Oral b.i.d., Glucosamine 1 Capsule (of 500 mg) Oral b.i.d., Neuriva 1 Capsule Oral daily, Omeprazole 1 Capsule (of 20 mg) Capsule Delayed Release Oral b.i.d., Zinc 1 Capsule (of 50 mg) Oral daily Allergies: No Known Allergies. Social History: Ms. Salcido is . Ms. Salcido no longer smokes. She has no history of drinking. Family History: Ms. Salcido's mother at age 69: stroke, and type II diabetes. Ms. Salcido's father at age 79. Parents both passed of Cancer. Review Of Symptoms: Review of Systems is not available for this patient. Vital Signs: Performed on December 08, 2020 13:53: 0, 56.52 (HIGH), 2.30 sq.m, 62 in, 98 %, 84 /min, 18 /min, 102/63 mm(hg), 97.0 F (LOW), and 309 lbs (HIGH). Performance Status: 0 - Fully active, able to carry on all predisease activities without restrictions. (ECOG) Physical Examination: ENMT - No mouth sores, no thrush, no jaundice, Respiratory - Lungs are clear to auscultation, Cardiovascular - Regular rate and rhythm of heart, Abdomen - Soft, bowel sounds present, Extremities - No visible edema. Lab/Imaging: Most recent lab results are not available for this patient. Impression: Endometrioid adenocarcinoma, FIGO grade 1, involving endometrial polyp, less than 50% of myometrial invasion identified, underwent laparoscopic-assisted vaginal hysterectomy on October 22, 2020, stage T1 a, NX, MX FIGO grade 1, stage I History of gastric bypass surgery done in 2013 for weight reduction Status post colonoscopy with polypectomy on August 07, 2019, ascending colon, 5 mm sessile polyp removed with cold biopsy forceps, sigmoid colon, mild diverticulosis, 1.5 cm pedunculated polyp removed with hot snare., EGD, GERD. Sleep apnea Plan: Discussed with patient regarding her newly diagnosed endometrioid adenocarcinoma of the uterus, pathology was reviewed, which confirmed early stage, grade 1 endometrioid adenocarcinoma, less than 50% myometrial invasion,, being low-grade, early stage disease, as per NCCN guidelines there is no role of adjuvant chemotherapy or radiation therapy rather observation is recommended, patient agreed and will follow with her ENVIRONMENTAL PROTECTION FORESTER on a regular basis and we will see her on as-needed basis , Patient was also advised, as she underwent gastric bypass surgery in the recent past, there is a possibility she may develop combined iron and B12 deficiency due to malabsorption. Patient is on B12 supplement and being managed by her PMD. Signed By: Arjun Boyd M.D. <<Signature on File>>
== END 2020-12-08 12:41 | disposition home or self-care (01) ==
LOC: ONCMED 12:43
PROVIDERS: PCP Registered Nurse; Visit Provider Internal Medicine Hematology & Oncology
DX: C53.9 Malignant neoplasm of cervix uteri, unspecified (principal); K21.9 Gastro-esophageal reflux disease without esophagitis; G47.33 Obstructive sleep apnea (adult) (pediatric); Z79.899 Other long term (current) drug therapy
CPT/HCPCS: 99204

== ENCOUNTER → 2021-01-15 10:35 | Outpatient (BNVA) | payer OTHER, SELFPAY | PROVIDERS: PCP Registered Nurse; Visit Provider Registered Nurse | DX: E53.8 Deficiency of other specified B group vitamins (principal); K21.9 Gastro-esophageal reflux disease without esophagitis | CPT/HCPCS: 82607 ==

== ENCOUNTER → 2021-11-19 10:14 | Outpatient (BNVA) | payer OTHER, SELFPAY | PROVIDERS: PCP Registered Nurse; Visit Provider Surgery | DX: K91.2 Postsurgical malabsorption, not elsewhere classified (principal) | CPT/HCPCS: 80053; 82306; 82607; 82728; 82747; 83735; 84590; 85025 ==

== ENCOUNTER 2022-09-21 12:28 | Outpatient (CLI) | payer OTHER, SELFPAY ==
[2022-09-21 12:33] VITALS: BMI 56.3
--- NOTE | 2022-09-21 12:34 | ECG_ITS ---
[facility] Test Date: 2022-09-21 Pat Name: Juana Salcido Department: Room: Gender: Female Story Writer: Sendy Farnsworth : 1965 Requested By: Katja Wayne Order Number: [id number] Enedina MD: Katja Wayne M.D. Interpretive Statements NAME OF STUDY: TREADMILL STRESS TEST INDICATION: Chest Pain, MAXIMAL EFFORT ACHEIVED, STOPPED TEST DUE TO SHORTNESS OF BREATH PROCEDURE: At the baseline, the patient's blood pressure was with a heart rate of. The baseline electrocardiogram showed normal sinus rhythm with normal ST-Ts. Poor R wave progression. The patient exercised for 2 minutes and 15 seconds on a standard Joaquin protocol. Patient attained a maximum heart rate of 162 beats per minute( 100 % of the maximum predicted heart rate) with a blood pressure at the peak exercise of 148/91 mm Hg. The EKG at the peak exercise revealed no significant changes. Few PVCs were noted during the stress. Patient did not have any chest pain or any significant cardiac arrhythmias with the exercise During the recovery phase, there were no new changes. Blood pressure at the end of the recovery phase was 106/68 mm Hg with a heart rate of 87 per minute. CONCLUSION: 1. No significant EKG changes with the treadmill exercise 2. No exercise-induced chest pain. Exercise-induced ventricular arrhythmias were noted. 3. Impaired exercise tolerance, attained a maximum of 4.6 METs Electronically Signed On 09-25-2022 16:00:07 GUEST EXPERIENCE MANAGER by Katja Wayne M.D. [id number]
[2022-09-21 13:10] VITALS: BP 106/68; PULSE 86
== END 2022-09-21 12:29 | disposition home or self-care (01) ==
LOC: CDL 12:29
PROVIDERS: PCP Registered Nurse; Visit Provider Internal Medicine Cardiovascular Disease
DX: R07.9 Chest pain, unspecified (principal)
CPT/HCPCS: 93017

== ENCOUNTER → 2022-11-23 09:39 | Outpatient (BNVA) | payer OTHER, SELFPAY | PROVIDERS: PCP Registered Nurse; Visit Provider Surgery | DX: E53.8 Deficiency of other specified B group vitamins (principal); K21.9 Gastro-esophageal reflux disease without esophagitis; D50.9 Iron deficiency anemia, unspecified; K91.2 Postsurgical malabsorption, not elsewhere classified | CPT/HCPCS: 80053; 82306; 82525; 82607; 82728; 82747; 83550; 83735; 84590; 85025 ==

== ENCOUNTER → 2022-12-23 11:26 | Outpatient (BNVA) | payer OTHER, SELFPAY | PROVIDERS: PCP Registered Nurse; Visit Provider Registered Nurse | DX: E53.9 Vitamin B deficiency, unspecified (principal); Z00.00 Encounter for general adult medical examination without abnormal findings; E53.8 Deficiency of other specified B group vitamins; Z12.31 Encounter for screening mammogram for malignant neoplasm of breast; E66.01 Morbid (severe) obesity due to excess calories; Z71.85 Encounter for immunization safety counseling; Z13.1 Encounter for screening for diabetes mellitus | CPT/HCPCS: 80053; 80061; 82306; 82607; 83036; 85025 ==

== ENCOUNTER → 2023-02-16 11:19 | Outpatient (BNVA) | payer OTHER, SELFPAY | PROVIDERS: PCP Registered Nurse; Visit Provider Podiatrist Foot & Ankle Surgery | DX: M20.21 Hallux rigidus, right foot | CPT/HCPCS: 73630 ==

== ENCOUNTER 2023-03-25 10:52 | Outpatient (CLI) | payer OTHER, SELFPAY ==
--- NOTE | 2023-03-25 11:02 | MM_ITS ---
WS: [id number] VIEWS: MLO and CC views both breasts. 3D digital tomosynthesis is also included in this exam. Comparison made with prior exam of 04/24/2019, 05/13/2020,. Findings: There was no sign of mass, architectural distortion or suspicious calcification in either breast. The breasts are almost entirely fatty Impression: MM/[place] [id number] BI-RADS: 1-Negative FOLLOW-UP: 1 Year Follow-up This mammogram was also analyzed by the Computer Aided Detection System R2 Imag e Curator.
== END 2023-03-25 10:53 | disposition home or self-care (01) ==
LOC: RAD 10:55
PROVIDERS: PCP Registered Nurse; Visit Provider Registered Nurse
DX: Z12.31 Encounter for screening mammogram for malignant neoplasm of breast (principal)
CPT/HCPCS: 77063; 77067

== ENCOUNTER → 2024-03-19 11:58 | Outpatient (BNVA) | payer OTHER, SELFPAY | PROVIDERS: PCP Registered Nurse; Visit Provider Registered Nurse | DX: E53.8 Deficiency of other specified B group vitamins (principal); I10 Essential (primary) hypertension; E55.9 Vitamin D deficiency, unspecified | CPT/HCPCS: 80053; 80061; 82306; 82607; 85025 ==

== ENCOUNTER 2024-03-22 06:00 | Outpatient (RCR) | payer OTHER, SELFPAY | END 2024-03-24 23:59 | disposition home or self-care (01) | LOC: WPT 06:00 | PROVIDERS: PCP Registered Nurse; Visit Provider Registered Nurse | DX: M54.40 Lumbago with sciatica, unspecified side (principal) | CPT/HCPCS: 97161 ==

== ENCOUNTER 2024-03-25 06:00 | Outpatient (RCR) | payer OTHER, SELFPAY | END 2024-04-23 23:59 | disposition home or self-care (01) | LOC: WPT 06:00 | PROVIDERS: PCP Registered Nurse; Visit Provider Registered Nurse | DX: M54.40 Lumbago with sciatica, unspecified side (principal) | CPT/HCPCS: 97110; 97112; 97530 ==

== ENCOUNTER 2024-03-28 10:04 | Outpatient (CLI) | payer OTHER, SELFPAY ==
--- NOTE | 2024-03-28 11:40 | MM_ITS ---
WS: [id number] SCREENING DIGITAL TOMOSYNTHESIS MAMMOGRAM WITH CAD HISTORY: Z12.31 - Encounter for screening mammogram for malignant ... COMPARISON: 03/25/2023, 05/13/2020 Bilateral CC and MLO with tomosynthesis views submitted. Synthetic mammography reviewed. Computer aid ed detection analyzed. Breast composition: The breasts are almost entirely fatty. No suspicious masses, microcalcifications or architectural distortion. Benign calcifications in each breast. MM/[place] [id number] IMPRESSION: BI-RADS: 2 - Benign. FOLLOW UP: 1 Year Follow-up
== END 2024-03-28 10:05 | disposition home or self-care (01) ==
LOC: MOBLMAM 10:10
PROVIDERS: PCP Registered Nurse; Visit Provider Registered Nurse
DX: Z12.31 Encounter for screening mammogram for malignant neoplasm of breast (principal); R92.313 Mammographic fatty tissue density, bilateral breasts; R92.1 Mammographic calcification found on diagnostic imaging of breast
CPT/HCPCS: 77063; 77067

== ENCOUNTER 2024-04-02 12:58 | Outpatient (CLI) | payer OTHER, SELFPAY ==
--- NOTE | 2024-04-02 13:30 | XR_ITS ---
WS: [email or web address] DEXA (DUAL ENERGY X-RAY ABSORPTIOMETRY) Bone mineral density was performed using a Alexis Bittar machine. HISTORY: M81.0 - Age-related osteoporosis without current patholog... COMPARISON: None available. Lumbar spine BMD (L1-L4): 1.201 g/cm2 T score: 0.2 Z score: 0.2 Total hip BMD: Left: 0.844 g/cm2. T score: -1.3 Z score: -1.2 Right: 0.799 g/cm2. T score: -1.7 Z score: -1.5 10 year probability of a major osteoporotic fracture is 8.4%. XR/XR DEXA axial skeleton* 92010 IMPRESSION: OSTEOPENIA based upon the WHO classification for females.
== END 2024-04-02 12:59 | disposition home or self-care (01) ==
LOC: RAD 12:59
PROVIDERS: PCP Registered Nurse; Visit Provider Registered Nurse
DX: M81.0 Age-related osteoporosis without current pathological fracture (principal); M85.80 Other specified disorders of bone density and structure, unspecified site
CPT/HCPCS: 77080

== ENCOUNTER 2024-04-24 06:00 | Outpatient (RCR) | payer OTHER, SELFPAY | END 2024-05-24 23:59 | disposition home or self-care (01) | LOC: WPT 06:00 | PROVIDERS: PCP Registered Nurse; Visit Provider Registered Nurse | DX: M54.40 Lumbago with sciatica, unspecified side (principal) | CPT/HCPCS: 97110; 97112; 97530 ==

== ENCOUNTER 2025-02-15 09:54 | Outpatient (CLI) | payer OTHER, SELFPAY ==
--- NOTE | 2025-02-15 10:00 | USCV_ITS ---
Juana Salcido Age: 59 Gender: F : 1965 Exam Date: 02/15/2025 10:50 Ordering Phys: Katja Wayne MD ([email or web address]) Technologist: ALBERTA [place] [facility] [place]: murmur BP: 120 / 70 HR: 58 Rhythm: Sinus Technical Quality: Adequate MEASUREMENTS (Male / Female) Normal Values 2D ECHO LV Diastolic Diameter PLAX 4.7 cm 4.2 - 5.9 / 3.9 - 5.3 cm IVS Diastolic Thickness 1.0 cm 0.6 - 1.0 / 0.6 - 0.9 cm IVS Systolic Thickness 1.8 cm LVPW Diastolic Thickness 1.0 cm 0.6 - 1.0 / 0.6 - 0.9 cm LVPW Systolic Thickness 1.8 cm LVOT Diameter 2.3 cm LV Ejection Fraction 2D Teich 64.0 % LV Ejection Fraction MOD 4C 71.9 % LV Ejection Fraction MOD 2C 73.2 % LV Ejection Fraction 2C AL 74.6 % LA Diameter 3.3 cm RA Systolic Volume 4C AL 41.6 ml RA Systolic Volume 4C MOD 41.4 ml LA Sys Volume AL 60.1 cm cubed LA Sys Volume Index AL 24.9 cm cubed/m squared Aorta at Sinotubular Diameter 2.3 cm IVC Diameter 1.9 cm M-MODE LA Ao Ratio MM 2.1 AV Cusp Separation MM 2.0 cm DOPPLER AV Peak Velocity 162.0 cm/s LVOT Peak Velocity 118.0 cm/s AV Area Cont Eq vti 3.2 cm squared AV Area Cont Eq pk 2.9 cm squared MV Peak Velocity 89.0 cm/s MV Area PHT 6.3 cm squared Mitral E to A Ratio 0.9 TV Peak Velocity 318.0 cm/s TR Peak Velocity 325.0 cm/s TR Peak Gradient 42.3 mmHg TR Mean Velocity 281.0 cm/s TR Mean Gradient 32.2 mmHg TR Velocity Time Integral 120.0 cm PV Peak Velocity 82.0 cm/s RV Ejection Time 0.3 s FINDINGS Left Ventricle Normal left ventricular size, systolic function and wall thickness, with no regional wall motion abnormalities. EF 71%. Normal diastolic function. Right Ventricle The right ventricle is normal in size and function. Right Atrium The right atrium is normal in size. Left Atrium The left atrium is normal in size. Mitral Valve Structurally normal mitral valve with no stenosis or regurgitation. Aortic Valve Structurally normal aortic valve without significant sclerosis or stenosis. There is no aortic regurgitation. Tricuspid Valve Tricuspid valve with normal structure. Mild tricuspid valve regurgitation. No tricuspid valve stenosis. Pulmonary artery systolic pressure is normal. Pulmonic Valve Structurally normal pulmonic valve without significant stenosis. There is no pulmonic regurgitation. Pericardium Normal pericardium without effusion. Aorta Normal aortic root and ascending aorta dimension. IVC The inferior vena cava appears normal. CONCLUSIONS 1. Normal left ventricular and right ventricular size and function 2. Mild tricuspid valve regurgitation Juan M Mckee (Electronically Signed) Final Date: 15 February 2025 16:53 S
== END 2025-02-15 09:55 | disposition home or self-care (01) ==
PROVIDERS: PCP Registered Nurse; Visit Provider Internal Medicine Cardiovascular Disease
DX: I49.9 Cardiac arrhythmia, unspecified (principal); I07.1 Rheumatic tricuspid insufficiency
CPT/HCPCS: 93306

== ENCOUNTER → 2025-03-21 09:32 | Outpatient (BNVA) | payer OTHER, SELFPAY | PROVIDERS: PCP Registered Nurse; Visit Provider Registered Nurse | DX: E53.9 Vitamin B deficiency, unspecified (principal); Z13.1 Encounter for screening for diabetes mellitus; Z13.6 Encounter for screening for cardiovascular disorders; E11.9 Type 2 diabetes mellitus without complications | CPT/HCPCS: 80053; 80061; 82607; 83036; 85025 ==

== ENCOUNTER 2025-04-08 07:14 | Outpatient (CLI) | payer OTHER, SELFPAY ==
--- NOTE | 2025-04-08 07:45 | CT_ITS ---
WS: [id number] LDCT LUNG CANCER SCREENING HISTORY: Z87.891 - Personal history of nicotine dependence TECHNIQUE: Axial imaging performed from the apices to 1 cm below the costophrenic angles. Coronal and sagittal reformats are submitted with axial MIP series. All CT scans at [facility] use at least one of these dose optimization techniques: automated exposure control; mA and/or kV adjustment per patient size (includes targeted exams where dose is matched to clinical indication); or iterative reconstruction. DLP: 156.30 mGy.cm DIvol: Mean CTDIvol: 4.40 (mGy) COMPARISON: None available. Diagnostic quality: Satisfactory Lungs: Tiny pleural scar at the RIGHT lung base. No suspicious mass or nodule. No pneumonia or endobronchial lesions. Heart: Normal size heart with no pericardial effusion.. Other findings: Mild atherosclerosis aorta. Normal size pulmonary artery. No adenopathy. Prior gastric bypass. Mild scoliosis thoracic spine. Spondylitic changes but no fracture. CT/CT lung screening [id number] IMPRESSION: LUNG-RADS: 2-Benign Appearance or Behavior FOLLOW UP: 12 Month: Continue annual screening with LDCT OTHER FINDINGS (S MODIFIER): None.
== END 2025-04-08 07:15 | disposition home or self-care (01) ==
LOC: RAD 07:16
PROVIDERS: PCP Registered Nurse; Visit Provider Registered Nurse
DX: Z12.2 Encounter for screening for malignant neoplasm of respiratory organs (principal); Z87.891 Personal history of nicotine dependence
CPT/HCPCS: 71271

== ENCOUNTER 2025-04-30 09:31 | Day surgery (SDC) | payer OTHER, SELFPAY ==
[2025-04-30 10:25] VITALS: BP 180/99; PULSE 70; RESP 18; O2SAT 98
[2025-04-30 10:26] VITALS: BMI 55.5
--- NOTE | 2025-04-30 10:33 | ANES.PREANE2 ---
Pre-Anesthetic Assessment Height/Weight: Height 1.57 m Weight 137.892 kg Pulse Resp BP Pulse Ox O2 Del Method 70 18 180/99 98 Room Air 04/30/25 10:04/30/25 10:04/30/25 10:04/30/25 10:04/30/25 10: Operation Date: 04/30/25 11:00 Proposed Procedures p Colonoscopy 86405 G0121 Z12.11(Not Applicable) - Maximilian Haley MD Familial anesthetic complications: None Was Beta Armand taken within 24 hours: Yes Was Clonidine taken within 24 hours: N/A Last intake: Intake Last Liquid Date 04/29/25 Last Liquid Time 23:30 Last Solid Date 04/28/25 Social Alcohol (Drinks on the weekends, couple shots on Tuesday and Tuesday) and No tobacco Exam alert, oriented x 3, clear to auscultation bilaterally and regular rate & rhythm Airway Submandibular: within normal limits Cervical ROM: within normal limits Mallampati: Class II Dentition: full History/ROS No significant history except as noted and No significant complaints Pulmonary Sleep Apnea (Does not use CPAP) CV/HEM Hypertension and Murmur CONCLUSIONS 1. Normal left ventricular and right ventricular size and function 2. Mild tricuspid valve regurgitation None reported Hepatic None reported GI Gastroesophageal Reflux Disease (Well controlled with meds, no symptoms this morning) Metabolic Diabetes Mellitus and Morbid Obesity Musc/skel Osteoarthritis/DJD Neuropsych Deficit Aneurysm base of skull, right sided weakness at age 24. Angiogram performed, no surgery needed. Right side weaker and slower than left side. Anesthetic Plan ASA status: 3 Anesthesia: Anesthesia Evaluation, General and MAC Risk of > 500 ml blood loss (7ml/kg in children): No Medications/Allergies Home Medications ?Medication ?Instructions ?Recorded ?Confirmed ?Last Taken ?Type ascorbic acid (vitamin C) 1,000 mg 1,000 mg PO DAILY 08/06/19 04/24/25 04/24/25 History tablet (Vitamin C) calcium carbonate-vitamin D3 600 2 tab PO DAILY 08/06/19 04/24/25 04/24/25 History mg-125 unit tablet (Calcium) docusate sodium 100 mg capsule 200 mg PO DAILY 08/06/19 04/24/25 04/24/25 History (Colace) multivitamin 1 tab PO DAILY 08/06/19 04/24/2525 History mecobalamin (vitamin B12) 1,000 1,000 mcg PO DAILY 03/06/24 04/24/25 04/24/25 History mcg chewable tablet magnesium oxide 400 mg (241.3 mg 400 mg PO DAILY #90 tabs 01/24/25 04/24/25 04/24/25 Rx magnesium) tablet acetaminophen 500 mg tablet 1,000 mg PO Q4H PRN Pain 04/24/25 04/24/25 04/24/25 History cholecalciferol (vitamin D3) 50 50 mcg PO DAILY 04/24/25 04/24/25 04/24/25 History mcg (2,000 unit) capsule (Vitamin D3) diphenhydramine HCl 25 mg tablet 25 mg PO BID 04/24/25 04/24/25 04/24/25 History metoprolol tartrate 50 mg tablet 50 mg PO BID 04/24/25 04/24/25 04/24/25 History pantoprazole 40 mg tablet,delayed 40 mg PO DAILY 04/24/25 04/24/25 04/24/25 History release Allergies Allergy/AdvReac Type Severity Reaction Status Date / Time No Known Allergies Allergy Verified 04/01/25 10:37 Current Medications Generic Name Dose Route Start Last Admin Trade Name Freq PRN Reason Stop Dose Admin Sodium Chloride 1,000 mls @ 15 mls/hr 04/30/25 09:42 04/30/25 10:25 Sodium Chloride 0.9% IV 05/01/25 09:41 15 mls/hr .Q24H PRN Administration COLONOSCOPY FLUIDS PFSH Anesthesia Medical History Postsurgical malabsorption, not elsewhere classified B12 deficiency Aftercare following surgery of the genitourinary system Otalgia, bilateral Vitamin B deficiency GERD (gastroesophageal reflux disease) Obstructive sleep apnea History of colon polyps Follow-up colonoscopy 2024 Surgical History H/O esophagogastroduodenoscopy H/O eye surgery AT AGE 2 For lazy ey History of appendectomy History of delivery S/P partial hysterectomy 1986 Hx of gastric bypass 2013. Still f.u once a year at [facility]. Status post colonoscopy with polypectomy 08/07/2019:Ascending colon: 5 mm sessile polyp removed with cold biopsy forceps Sigmoid colon: Mild diverticulosis, 1.5 cm pedunculated polyp removed with a hot snare Family History Mother Diabetes Stroke Cancer Father Family history of colon cancer Cancer Denies family history of Ovarian cancer CAD (coronary artery disease) Clotting disorder Dementia Hyperlipidemia Psychiatric illness Chronic kidney disease (CKD) Breast cancer Suicide Anesthesia complication Bleeding disorder Family history of premature coronary artery disease Lung disease Hypertension Uterine cancer Thyroid disease Social History Smoking and tobacco/nicotine status: former use of tobacco/nicotine Quit status (tobacco/nicotine): has quit using Year quit tobacco: 2011 Alcohol intake: never Substance/Drug Use: never Adopted: No Caregiver/support person: No Lives independently: No Household members: family Marital status: / service: No Do you think of yourself as: Straight/Heterosexual Current gender identity: Female Data Anesthesia Cardiac Studies: Echocardiogram 02/15/25 Holter Monitor 04/08/22
--- NOTE | 2025-04-30 10:45 | W.PM.OPSFHP ---
Same Day Surgery H&P Indication for Procedure/HPI DATE OF PROCEDURE: April 30, 2025 CHIEF COMPLAINT/INDICATIONFOR SURGICAL PROCEDURE: screening colonoscopy PREOP DIAGNOSIS: screening colonoscopy PLANNED PROCEDURE: Operation Date: 04/30/25 11:00 Proposed Procedures p Colonoscopy 60698 G0121 Z12.11(Not Applicable) - Maximilian Haley MD Medications/Allergies* Home Medications ?Medication ?Instructions ?Recorded ?Confirmed ?Type ascorbic acid (vitamin C) 1,000 mg 1,000 mg PO DAILY 08/06/19 04/24/25 History tablet (Vitamin C) calcium carbonate-vitamin D3 600 2 tab PO DAILY 08/06/19 04/24/25 History mg-125 unit tablet (Calcium) docusate sodium 100 mg capsule 200 mg PO DAILY 08/06/19 04/24/25 History (Colace) multivitamin 1 tab PO DAILY 08/06/19 04/24/25 History mecobalamin (vitamin B12) 1,000 1,000 mcg PO DAILY 03/06/24 04/24/25 History mcg chewable tablet acetaminophen 500 mg tablet 1,000 mg PO Q4H PRN Pain 04/24/25 04/24/25 History cholecalciferol (vitamin D3) 50 50 mcg PO DAILY 04/24/25 04/24/25 History mcg (2,000 unit) capsule (Vitamin D3) diphenhydramine HCl 25 mg tablet 25 mg PO BID 04/24/25 04/24/25 History metoprolol tartrate 50 mg tablet 50 mg PO BID 04/24/25 04/24/25 History pantoprazole 40 mg tablet,delayed 40 mg PO DAILY 04/24/25 04/24/25 History release Allergies/Adverse Reactions Allergy/AdvReac Type Severity Reaction Status Date / Time No Known Allergies Allergy Verified 04/01/25 10:37 Current Medications: Generic Name Dose Route Start Last Admin Trade Name Freq PRN Reason Stop Dose Admin Sodium Chloride 1,000 mls @ 15 mls/hr 04/30/25 09:42 04/30/25 10:25 Sodium Chloride 0.9% IV 05/01/25 09:41 15 mls/hr .Q24H PRN Administration COLONOSCOPY FLUIDS Pertinent History/Comorbid Conditions* Medical History (Updated 01/08/25 @ 10:19 by Katja Wayne MD) Postsurgical malabsorption, not elsewhere classified B12 deficiency Aftercare following surgery of the genitourinary system Otalgia, bilateral Vitamin B deficiency GERD (gastroesophageal reflux disease) Obstructive sleep apnea History of colon polyps Follow-up colonoscopy 2024 Surgical History (Updated 10/23/20 @ 12:38 by Indra Seaman MD) H/O esophagogastroduodenoscopy H/O eye surgery AT AGE 2 For kallei noonan History of appendectomy History of delivery S/P partial hysterectomy 1986 Hx of gastric bypass 2013. Still f.u once a year at [facility] [place]. Status post colonoscopy with polypectomy 08/07/2019:Ascending colon: 5 mm sessile polyp removed with cold biopsy forceps Sigmoid colon: Mild diverticulosis, 1.5 cm pedunculated polyp removed with a hot snare Family History (Updated 07/07/22 @ 14:55 by Dang Robert) Family history of colon cancer Father Diabetes Mother Cancer Mother Father Stroke Mother Denies family history of Ovarian cancer CAD (coronary artery disease) Clotting disorder Dementia Hyperlipidemia Psychiatric illness Chronic kidney disease (CKD) Breast cancer Suicide Anesthesia complication Bleeding disorder Family history of premature coronary artery disease Lung disease Hypertension Uterine cancer Thyroid disease Social History Smoking and tobacco/nicotine status: former use of tobacco/nicotine Quit status (tobacco/nicotine): has quit using Year quit tobacco: 2011 Alcohol intake: never Substance/Drug Use: never Adopted: No Caregiver/support person: No Lives independently: No Household members: family Marital status: / service: No Do you think of yourself as: Straight/Heterosexual Current gender identity: Female Pertinent Exam Findings alert, oriented x 3, clear to auscultation bilaterally, regular rate & rhythm and procedure specific exam findings abdomen soft, nt, nd Recommendations Risks and benefits of procedure reviewed and Patient/family agree to proceed Surgery/Procedure today Coding Level of Care Code Acute Code for Chg Fwd
[2025-04-30 11:18] VITALS: BP 121/74; PULSE 63; RESP 16; TEMP 36.5; O2SAT 96
[2025-04-30 11:29] VITALS: BP 138/70; PULSE 65; RESP 16; O2SAT 98
[2025-04-30 11:38] VITALS: BP 122/48; PULSE 66; RESP 16; O2SAT 98
--- NOTE | 2025-04-30 11:45 | ANE.PACU2 ---
Inpatient post-anesthesia follow up: Airway intact: Yes Vital signs: Temperature 97.7 F Pulse Rate 66 Respiratory Rate 16 Blood Pressure 122/48 Pulse Oximetry 98 Oxygen Delivery Me thod Room Air Oxygen Flow Rate Fraction of Inspir ed Oxygen Hydration adequate: Yes Nausea and vomiting: No Pain level: 1 Mental status: Baseline
== END 2025-04-30 11:45 | disposition home or self-care (01) ==
PROVIDERS: PCP Registered Nurse; Visit Provider Student in an Organized Health Care Education/Training Program
PROC: 0DJD8ZZ Inspection of Lower Intestinal Tract, Via Natural or Artificial Opening Endoscopic (ICD-10-PCS; CPT 45378; principal; 2025-04-30 11:00)
DX: Z12.11 Encounter for screening for malignant neoplasm of colon (principal); D12.6 Benign neoplasm of colon, unspecified; K21.9 Gastro-esophageal reflux disease without esophagitis; G47.33 Obstructive sleep apnea (adult) (pediatric); Z86.0100 Personal history of colon polyps, unspecified; H92.03 Otalgia, bilateral; Z87.891 Personal history of nicotine dependence; E11.9 Type 2 diabetes mellitus without complications; E66.01 Morbid (severe) obesity due to excess calories; Z68.43 Body mass index [BMI] 50.0-59.9, adult
CPT/HCPCS: 45380; 88305; J2704; J7030

== ENCOUNTER 2025-05-29 09:42 | Outpatient (CLI) | payer OTHER, SELFPAY ==
--- NOTE | 2025-05-29 10:00 | MM_ITS ---
WS: [id number] BILATERAL SCREENING DIGITAL TOMOSYNTHESIS MAMMOGRAM WITH CAD HISTORY: SCREENING COMPARISON: 03/28/2024, 03/25/2023 Bilateral CC and MLO views with tomosynthesis and synthetic mammography submitted. Computer aided detection analyzed. Breast composition: There are scattered areas of fibroglandular density. No suspicious masses, microcalcifications or architectural distortion. Benign arterial calcifications. MM/MM scr BI tomosynthesis [id number] IMPRESSION: BI-RADS: 2 - Benign. FOLLOW UP: 1 Year Follow-up
== END 2025-05-29 09:43 | disposition home or self-care (01) ==
LOC: MOBLMAM 09:44
PROVIDERS: PCP Registered Nurse; Visit Provider Registered Nurse
DX: Z12.31 Encounter for screening mammogram for malignant neoplasm of breast (principal); R92.323 Mammographic fibroglandular density, bilateral breasts; R92.1 Mammographic calcification found on diagnostic imaging of breast
CPT/HCPCS: 77063; 77067